=== PATIENT | male | born 1990 | race Caucasian/White ===

== ENCOUNTER → 2017-08-22 | Outpatient (CLI) | payer OTHER ==
[2017-08-22 11:49] LABS: ALANINE AMINOTRANSFERASE 26 U/L (21-72); ALBUMIN 4.4 g/dL (3.5-5.0); ALKALINE PHOSPHATASE 82 U/L (38-126); ANION GAP 12 (5-19); ASPARTATE AMINO TRANSFERASE 22 U/L (17-59); BILIRUBIN,DIRECT 0.4 mg/dL (0.0-0.4); BILIRUBIN,TOTAL 0.9 mg/dL (0.2-1.3); BLOOD UREA NITROGEN 13 mg/dL (7-20); CALCIUM 9.4 mg/dL (8.4-10.2); CARBON DIOXIDE 31 mmol/L (22-30); CHLORIDE 98 mmol/L (98-107); CHOLESTEROL 153.15 mg/dL (0-200); CREATININE RESULT 0.81 mg/dL (0.52-1.25); Direct HDL 53 mg/dL (>40); GLUCOSE 222 mg/dL (75-110); POTASSIUM 4.8 mmol/L (3.6-5.0); SODIUM 140.6 mmol/L (137-145); TOTAL PROTEIN 7.4 g/dL (6.3-8.2); TRIGLYCERIDES 90 mg/dL (<150)
[2017-08-22 12:01] LABS: DIRECT LDL 82 mg/dL (<100)
== END ==
LOC: CCC 10:09
DX: E11.40 Type 2 diabetes mellitus with diabetic neuropathy, unspecified (principal)
CPT/HCPCS: 36415; 80053; 80061; 83036

== ENCOUNTER → 2019-01-31 | Outpatient (CLI) | payer OTHER ==
[2019-01-31 10:29] LABS: ABSOLUTE EOSINOPHILS # (AUTO) 0.1 10^3/uL (0.0-0.6); ABSOLUTE MONOCYTES (AUTO) 0.7 10^3/uL (0.1-1.4); ABSOLUTE NEUT (AUTO) 9.4 10^3/uL (1.7-8.2); BASOPHILS % (AUTO) 0.3 % (0-2); EOSINOPHILS % (AUTO) 0.8 % (0-6); HEMOGLOBIN 16.5 g/dL (13.5-17.0); LYMPHOCYTES % (AUTO) 9.1 % (13-45); MEAN CORPUSCULAR HEMOGLOBIN 31.1 pg (27.0-33.4); MEAN CORPUSCULAR HGB CONC 34.3 g/dL (32.0-36.0); MEAN CORPUSCULAR VOLUME 90 fl (80-97); MONOCYTES % (AUTO) 6.2 % (3-13); PLATELET COUNT 230 10^3/uL (150-450); RED BLOOD COUNT 5.31 10^6/uL (4.35-5.55); RED CELL DISTRIBUTION WIDTH 12.2 % (11.5-14.0); SEGMENTED NEUTROPHILS % (AUTO) 83.6 % (42-78); TOTAL CELLS COUNTED % (AUTO) 100 %; WHITE BLOOD COUNT 11.2 10^3/uL (4.0-10.5)
[2019-01-31 10:54] LABS: BLOOD UREA NITROGEN 16 mg/dL (7-20); CALCIUM 10.5 mg/dL (8.4-10.2); GLUCOSE 126 mg/dL (75-110)
[2019-01-31 10:55] LABS: ALANINE AMINOTRANSFERASE 20 U/L (21-72); ALBUMIN 4.9 g/dL (3.5-5.0); ALKALINE PHOSPHATASE 98 U/L (38-126); ANION GAP 11 (5-19); ASPARTATE AMINO TRANSFERASE 21 U/L (17-59); BILIRUBIN,DIRECT 0.3 mg/dL (0.0-0.4); BILIRUBIN,TOTAL 0.9 mg/dL (0.2-1.3); CARBON DIOXIDE 29 mmol/L (22-30); CHLORIDE 98 mmol/L (98-107); CHOLESTEROL 220.36 mg/dL (0-200); POTASSIUM 4.5 mmol/L (3.6-5.0); SODIUM 138.1 mmol/L (137-145); TOTAL PROTEIN 8.5 g/dL (6.3-8.2); TRIGLYCERIDES 238 mg/dL (<150)
[2019-01-31 11:05] LABS: DIRECT LDL 114 mg/dL (<100)
[2019-01-31 11:09] LABS: VLDL CHOLESTEROL 47.6 mg/dL (10-31)
== END ==
LOC: OD 09:41
DX: I10 Essential (primary) hypertension (principal); E11.8 Type 2 diabetes mellitus with unspecified complications
CPT/HCPCS: 36415; 80053; 80061; 83036; 85025

== ENCOUNTER 2019-07-16 13:18 | Inpatient (IN) | payer SELFPAY ==
--- NOTE | 2019-07-16 13:38 | EKG REPORT ---
SEVERITY:- ABNORMAL ECG - SINUS TACHYCARDIA BIATRIAL ABNORMALITIES ST ELEVATION SUGGESTS PERICARDITIS BORDERLINE PROLONGED QT INTERVAL : Confirmed by: Chad Brink MD 16-Jul-2019 13:38:20
[2019-07-16] MEDS: NORMAL SALINE 1000 ML 1,000 ML IV PRN ×2 (13:41→14:59)
--- NOTE | 2019-07-16 13:41 | ER Document Report ---
ED General - General Chief Complaint: Nausea/Vomiting/Diarrhea Stated Complaint: WEAKNESS Time Seen by Provider: 07/16/19 13:28 TRAVEL OUTSIDE OF THE [place] IN LAST 30 DAYS: No - HPI Notes: Presents with 3 days of intermittent nausea vomiting diarrhea. Patient is a type I diabetic states that he has been out of his Lantus for approximately 1 week but has been taking his Humalog as prescribed. He states that he has been wrenching a lot and had some black vomitus as well as black stool. No recent camping around the country. Denies any chest or abdominal pain at this time. States he feels very dehydrated. He has not had a sick contacts or recent illnesses other than his nausea vomiting and diarrhea - Related Data Allergies/Adverse Reactions: yellow Jacket Allergy (Uncoded 07/16/19 13:39) Past Medical History - Social History Smoking Status: Unknown if Ever Smoked Family History: Reviewed & Not Pertinent Review of Systems - Review of Systems Constitutional: See HPI EENT: No symptoms reported Cardiovascular: No symptoms reported Respiratory: No symptoms reported Gastrointestinal: See HPI Genitourinary: No symptoms reported Male Genitourinary: No symptoms reported Musculoskeletal: No symptoms reported Skin: No symptoms reported Hematologic/Lymphatic: No symptoms reported Neurological/Psychological: No symptoms reported Physical Exam - Vital signs Vitals: Resp Pulse Ox 20 98 07/16/19 13:37 07/16/19 13:37 - General General appearance: Appears well, Alert - HEENT Head: Normocephalic, Atraumatic Eyes: Normal Conjunctiva: Normal Cornea: Normal Extraocular movements intact: Yes Pupils: PERRL Mucous membranes: Dry - Respiratory Respiratory status: No respiratory distress Chest status: Nontender Breath sounds: Normal Chest palpation: Normal - Cardiovascular Rhythm: Tachycardia Heart sounds: Normal auscultation Murmur: No - Abdominal Inspection: Normal Distension: No distension Bowel sounds: Normal Tenderness: Nontender - Genitourinary Inspection: Normal Notes: Greenish-yellow stool with no black and Hemoccult negative - Back Back: Normal - Extremities General upper extremity: Normal inspection, Normal ROM General lower extremity: Normal inspection, Normal ROM - Neurological Neuro grossly intact: Yes Cognition: Normal Orientation: AAOx4 - Psychological Associated symptoms: Normal affect Course - Re-evaluation Re-evalutation: 07/16/19 15:19 Patient found to be in DKA. Insulin and IV fluids started. Will be admitted - Vital Signs Vital signs: Temp Pulse Resp BP Pulse Ox 98.5 F 56 L 18 142/90 H 100 07/20/19 09:22 07/20/19 09:22 07/20/19 09:22 07/20/19 09:22 07/20/19 09:22 - Laboratory Result Diagrams: 07/19/19 03:54 07/20/19 04:22 Laboratory results interpreted by me: 07/16/19 07/16/19 07/16/19 13:25 13:31 13:31 WBC 22.4 H RBC 5.79 H Hgb 17.7 H Hct 55.3 H Seg Neuts % (Manual) 92 H Lymphocytes % (Manual) 3 L Abs Neuts (Manual) 20.6 H Carbonic Acid ABG pH ABG pCO2 ABG pO2 ABG HCO3 ABG Total CO2 Potassium 5.8 H Chloride 94 L Carbon Dioxide 9 L* Anion Gap 37 H BUN 43 H Creatinine 2.22 H Est GFR ( Amer) 42 L Est GFR (MDRD) Non-Af 35 L Glucose 827 H* POC Glucose > 550 H* Magnesium 2.8 H Alkaline Phosphatase 134 H Total Protein 9.1 H Albumin 5.7 H Urine Glucose (UA) Urine Ketones 07/16/19 07/16/19 07/16/19 13:50 14:43 15:12 WBC RBC Hgb Hct Seg Neuts % (Manual) Lymphocytes % (Manual) Abs Neuts (Manual) Carbonic Acid 0.67 L ABG pH 7.29 L ABG pCO2 22.2 L ABG pO2 110.2 H ABG HCO3 10.4 L ABG Total CO2 11.1 L Potassium Chloride Carbon Dioxide Anion Gap BUN Creatinine Est GFR ( Amer) Est GFR (MDRD) Non-Af Glucose POC Glucose > 550 H* Magnesium Alkaline Phosphatase Total Protein Albumin Urine Glucose (UA) >=1000 H Urine Ketones 300 H Discharge - Discharge Clinical Impression: DKA (diabetic ketoacidoses) Qualifiers: Diabetes mellitus type: type 1 Diabetes mellitus complication detail: with coma Qualified Code(s): E10.11 - Type 1 diabetes mellitus with ketoacidosis with coma Condition: Good Disposition: ADMITTED INPATIENT Admitting Provider: Stephanie (Hospitalist) Unit Admitted: ICU
[2019-07-16 13:49] LABS: HEMOGLOBIN 17.7 g/dL (13.5-17.0); MEAN CORPUSCULAR HEMOGLOBIN 30.6 pg (27.0-33.4); MEAN CORPUSCULAR HGB CONC 32.1 g/dL (32.0-36.0); MEAN CORPUSCULAR VOLUME 95 fl (80-97); PLATELET COUNT 322 10^3/uL (150-450); RED BLOOD COUNT 5.79 10^6/uL (4.35-5.55); RED CELL DISTRIBUTION WIDTH 12.8 % (11.5-14.0); WHITE BLOOD COUNT 22.4 10^3/uL (4.0-10.5)
[2019-07-16 13:52] LABS: HEMATOCRIT 55.3 % (37.9-51.0)
[2019-07-16 13:56] LABS: ARTERIAL BLOOD BASE EXCESS -13.5 mmol/L; ARTERIAL BLOOD H2CO3 0.67 mmol/L (1.05-1.35); ARTERIAL BLOOD HCO3 10.4 mmol/L (20-24); ARTERIAL BLOOD O2 SATURATION 97.6 % (94-98); ARTERIAL BLOOD PCO2 22.2 mmHg (35-45); ARTERIAL BLOOD PH 7.29 (7.35-7.45); ARTERIAL BLOOD PO2 110.2 mmHg (80-100); ARTERIAL BLOOD TOTAL CO2 11.1 mmol/L (23-27)
[2019-07-16 13:57] LABS: ARTERIAL BLOOD FIO2 ROOM AIR
[2019-07-16 14:10] LABS: ALBUMIN 5.7 g/dL (3.5-5.0); ALKALINE PHOSPHATASE 134 U/L (38-126); ASPARTATE AMINO TRANSFERASE 18 U/L (17-59); BILIRUBIN,DIRECT 0.3 mg/dL (0.0-0.4); BILIRUBIN,TOTAL 0.7 mg/dL (0.2-1.3); BLOOD UREA NITROGEN 43 mg/dL (7-20); CALCIUM 10.1 mg/dL (8.4-10.2); CHLORIDE 94 mmol/L (98-107); POTASSIUM 5.8 mmol/L (3.6-5.0); TOTAL PROTEIN 9.1 g/dL (6.3-8.2)
[2019-07-16 14:18] LABS: ANION GAP 37 (5-19)
[2019-07-16 14:20] LABS: CARBON DIOXIDE 9 mmol/L (22-30)
[2019-07-16 14:21] LABS: GLUCOSE 827 mg/dL (75-110)
[2019-07-16 14:28] LABS: ABSOLUTE LYMPHOCYTES# (MANUAL) 0.7 10^3/uL (0.5-4.7); ABSOLUTE MONOCYTES # (MANUAL) 1.1 10^3/uL (0.1-1.4); BASOPHILS % (MANUAL) 0 % (0-2); EOSINOPHILS % (MANUAL) 0 % (0-6); LYMPHOCYTES % (MANUAL) 3 % (13-45); MONOCYTES % (MANUAL) 5 % (3-13); SEGMENTED NEUTROPHILS % (MAN) 92 % (42-78); TOTAL CELLS COUNTED 100
[2019-07-16 14:29] LABS: PLATELET COMMENT ADEQUATE; RBC MORPHOLOGY COMMENT NORMO-CYTIC/CHROMIC
--- NOTE | 2019-07-16 15:15 | RADIOLOGY REPORT (SQ) ---
EXAM DESCRIPTION: CHEST SINGLE VIEW COMPLETED DATE/TIME: 07/16/2019 2:57 pm REASON FOR STUDY: N/V/D COMPARISON: None. EXAM PARAMETERS: NUMBER OF VIEWS: One view. TECHNIQUE: Single frontal radiographic view of the chest acquired. RADIATION DOSE: NA LIMITATIONS: None. FINDINGS: LUNGS AND PLEURA: No opacities, masses or pneumothorax. No pleural effusion. MEDIASTINUM AND HILAR STRUCTURES: No masses. Contour normal. HEART AND VASCULAR STRUCTURES: Heart normal in size. Normal vasculature. BONES: No acute findings. HARDWARE: None in the chest. OTHER: No other significant finding. IMPRESSION: NO ACUTE RADIOGRAPHIC FINDING IN THE CHEST. TECHNICAL DOCUMENTATION: JOB ID: [id number] [employer]- All Rights Reserved Reading location - IP/workstation name: [email or web address]
[2019-07-16] MEDS: INSULIN REG, HUMAN 100 UNIT/ML 3 ML VIAL (PYX) IV ONE ×2 (15:19→16:34)
[2019-07-16 15:24] LABS: APPEARANCE,URINE CLEAR; BILIRUBIN,URINE NEGATIVE (NEGATIVE); COLOR,URINE YELLOW; GLUCOSE, URINE >=1000 mg/dL (NEGATIVE); KETONES,URINE 300 mg/dL (NEGATIVE); LEUKOCYTE ESTERASE,URINE NEGATIVE (NEGATIVE); NITRITE,URINE NEGATIVE (NEGATIVE); PROTEIN,URINE NEGATIVE (NEGATIVE); URINE SPECIFIC GRAVITY 1.026; UROBILINOGEN,URINE NEGATIVE mg/dL (<2.0)
[2019-07-16] MEDS ORDERED: NORMAL SALINE 1000 ML 1,000 ML IV PRN ×2 (15:24→15:55)
[2019-07-16] MEDS ORDERED: GLUCAGON,HUMAN RECOMB 1 MG INJ IM PRN (15:55)
[2019-07-16] MEDS ORDERED: DEXTROSE 50%-WATER 25 GM/50 ML DISP.SYRIN IV PRN ×4 (15:55)
[2019-07-16] MEDS ORDERED: NORMAL SALINE 100 ML with INSULIN REGULAR, HUMAN 100 UNIT IV PRN ×2 (15:55)
[2019-07-16] MEDS ORDERED: GLUCAGON,HUMAN RECOMB 1 MG INJ SUBCUT PRN (15:55)
[2019-07-16] MEDS ORDERED: DEXTROSE 40% GEL 15 GM TUBE PO PRN ×4 (15:55)
[2019-07-16] MEDS: ONDANSETRON HCL INJ/PF 4 MG/2 ML SDV IV PRN ×2 (15:56→22:50)
--- NOTE | 2019-07-16 16:20 | PDOC H&P ---
History of Present Illness Admission Date/PCP: 07/16/19 15:38 MAGALY JEAN MD History of Present Illness: JORDYN DAVIS is a 29 year old male with a history of type 1 diabetes marta ha diagnosed at age 13 who comes in in diabetic ketoacidosis. He said he does not always check his blood sugar because it gets to be a hassle. He says a lot of the times he doses his insulin based on how he feels and not on his blood sugar. He supposed to be doing Lantus and a sliding scale. He been feeling poorly for a couple of days and has had some nausea and vomiting. He came in today and had a constellation of symptoms consistent with DKA. He is being admitted for an insulin drip and some IV fluids and electrolyte management. Past Medical History Endocrine Medical History: Reports: Diabetes Mellitus Type 1 Social History Smoking Status: Former Smoker Family History Parental Family History Reviewed: Yes - Hypertension Children Family History Reviewed: Yes - No medical problems Sibling(s) Family History Reviewed.: Yes - Nothing known Medication/Allergy Allergies/Adverse Reactions: yellow Jacket Allergy (Uncoded 07/16/19 13:39) Review of Systems All systems: reviewed and no additional remarkable complaints except as stated - All systems were reviewed and were negative except as noted in the HPI Physical Exam Vital Signs: Temp Pulse Resp BP Pulse Ox 26 H 143/101 H 99 07/16/19 14:16 07/16/19 14:16 07/16/19 14:16 Intake & Output 07/15/19 07/16/19 07/17/19 06:59 06:59 06:59 Intake Total 1000 Balance 1000 Weight 86.4 kg General appearance: PRESENT: cooperative, disheveled, mild distress, thin Head exam: PRESENT: atraumatic, normocephalic Eye exam: PRESENT: conjunctival injection, EOMI, PERRLA. ABSENT: nystagmus, scleral icterus Ear exam: PRESENT: normal external ear exam Mouth exam: PRESENT: dry mucosa, neck supple Throat exam: ABSENT: post pharyngeal erythema Neck exam: PRESENT: full ROM. ABSENT: carotid bruit, JVD, lymphadenopathy, meningismus, tenderness, thyromegaly Respiratory exam: PRESENT: clear to auscultation ramon, symmetrical, tachypnea, unlabored. ABSENT: accessory muscle use, chest wall tenderness, crackles, prolonged expiratory phas, rhonchi, wheezes Cardiovascular exam: PRESENT: +S1, +S2, tachycardia Pulses: PRESENT: normal carotid pulses Vascular exam: PRESENT: normal capillary refill GI/Abdominal exam: PRESENT: normal bowel sounds, soft. ABSENT: distended, guard ing, rebound, tenderness Extremities exam: ABSENT: clubbing, pedal edema Musculoskeletal exam: PRESENT: normal inspection. ABSENT: deformity Neurological exam: PRESENT: alert, awake, oriented to person, oriented to place, oriented to time, oriented to situation, CN II-XII grossly intact. ABSENT: motor sensory deficit Psychiatric exam: PRESENT: flat affect, normal mood Skin exam: PRESENT: dry, warm Results Laboratory Results: 07/16/19 13:31 07/16/19 13:31 07/16/19 07/16/19 07/16/19 13:31 13:31 13:50 WBC 22.4 H RBC 5.79 H Hgb 17.7 H Hct 55.3 H MCV 95 MCH 30.6 MCHC 32.1 RDW 12.8 Plt Count 322 Seg Neutrophils % Not Reportable Carbonic Acid 0.67 L HCO3/H2CO3 Ratio 15:1 ABG pH 7.29 L ABG pCO2 22.2 L ABG pO2 110.2 H ABG HCO3 10.4 L ABG O2 Saturation 97.6 ABG Base Excess -13.5 FiO2 ROOM AIR Sodium 140.3 Potassium 5.8 H Chloride 94 L Carbon Dioxide 9 L* Anion Gap 37 H BUN 43 H Creatinine 2.22 H Est GFR ( Amer) 42 L Glucose 827 H* Calcium 10.1 Magnesium 2.8 H Total Bilirubin 0.7 AST 18 Alkaline Phosphatase 134 H Total Protein 9.1 H Albumin 5.7 H Lipase 167.1 Urine Color Urine Appearance Urine pH Ur Specific [place] Urine Protein Urine Glucose (UA) Urine Ketones Urine Blood Urine Nitrite Ur Leukocyte Esterase Urine WBC (Auto) Urine RBC (Auto) Blood Type Antibody Screen 07/16/19 07/16/19 14:19 14:43 WBC RBC Hgb Hct MCV MCH MCHC RDW Plt Count Seg Neutrophils % Carbonic Acid HCO3/H2CO3 Ratio ABG pH ABG pCO2 ABG pO2 ABG HCO3 ABG O2 Saturation ABG Base Excess FiO2 Sodium Potassium Chloride Carbon Dioxide Anion Gap BUN Creatinine Est GFR ( Amer) Glucose Calcium Magnesium Total Bilirubin AST Alkaline Phosphatase Total Protein Albumin Lipase Urine Color YELLOW Urine Appearance CLEAR Urine pH 5.0 Ur Specific [place] 1.026 Urine Protein NEGATIVE Urine Glucose (UA) >=1000 H Urine Ketones 300 H Urine Blood NEGATIVE Urine Nitrite NEGATIVE Ur Leukocyte Esterase NEGATIVE Urine WBC (Auto) 1 Urine RBC (Auto) 0 Blood Type B POSITIVE Antibody Screen NEGATIVE Impressions: Chest X-Ray 07/16/19 13:37 IMPRESSION: NO ACUTE RADIOGRAPHIC FINDING IN THE CHEST. Assessment and Plan - Diagnosis (1) DKA (diabetic ketoacidoses) Qualifiers: Diabetes mellitus type: type 1 Diabetes mellitus complication detail: with coma Qualified Code(s): E10.11 - Type 1 diabetes mellitus with ketoacidosis with coma Is this a current diagnosis for this admission?: Yes Plan: We are going to put him on insulin drip and given copious IV fluids. We will check a metabolic panel every 4 hours and will replace electrolytes as needed. We will check a hemoglobin A1c in the morning to see how well controlled his blood sugar is to see if he needs further adjustment of his regimen. N.p.o. for now. - Time Time Spent with patient: 35 or more minutes - Inpatient Certification Based on my medical assessment, after consideration of the patient's comorbidities, presenting symptoms, or acuity I expect that the services needed warrant INPATIENT care.: Yes I certify that my determination is in accordance with my understanding of [facility]'s requirements for reasonable and necessary INPATIENT services [42 CFR 412.3e].: Yes Medical Necessity: Need Close Monitoring Due to Risk of Patient Decompensation, Need For IV Fluids, Need For Continuous Telemetry Monitoring, Risk of Complication if Not Cared For in Hospital
[2019-07-16 19:46] LABS: BLOOD UREA NITROGEN 41 mg/dL (7-20); CALCIUM 10.5 mg/dL (8.4-10.2); CHLORIDE 111 mmol/L (98-107); GLUCOSE 277 mg/dL (75-110)
[2019-07-16 19:56] LABS: CARBON DIOXIDE 21 mmol/L (22-30)
[2019-07-16 19:57] LABS: ANION GAP 18 (5-19)
[2019-07-16] MEDS ORDERED: POTASSI CL 20 MEQ/D5-1/2NS 1L 1,000 ML IV ONE (20:45)
[2019-07-16] MEDS: HEPARIN SOD (PORCINE) 5,000 UNIT/ML 1 ML VIAL SUBCUT SCH (21:22)
[2019-07-16 23:46] LABS: ANION GAP 18 (5-19); BLOOD UREA NITROGEN 34 mg/dL (7-20); CALCIUM 9.3 mg/dL (8.4-10.2); CARBON DIOXIDE 17 mmol/L (22-30); CHLORIDE 113 mmol/L (98-107); GLUCOSE 324 mg/dL (75-110); POTASSIUM 4.1 mmol/L (3.6-5.0)
[2019-07-17 03:59] LABS: ANION GAP 11 (5-19); BLOOD UREA NITROGEN 31 mg/dL (7-20); CALCIUM 9.9 mg/dL (8.4-10.2); CARBON DIOXIDE 25 mmol/L (22-30); CHLORIDE 116 mmol/L (98-107); GLUCOSE 245 mg/dL (75-110); PHOSPHORUS 1.5 mg/dL (2.5-4.5); POTASSIUM 4.2 mmol/L (3.6-5.0)
[2019-07-17 04:05] LABS: HEMATOCRIT 48.2 % (37.9-51.0); HEMOGLOBIN 16.4 g/dL (13.5-17.0); MEAN CORPUSCULAR HEMOGLOBIN 30.6 pg (27.0-33.4); MEAN CORPUSCULAR HGB CONC 33.9 g/dL (32.0-36.0); PLATELET COUNT 273 10^3/uL (150-450); RED BLOOD COUNT 5.34 10^6/uL (4.35-5.55); RED CELL DISTRIBUTION WIDTH 12.3 % (11.5-14.0); WHITE BLOOD COUNT 22.3 10^3/uL (4.0-10.5)
[2019-07-17 04:37] LABS: MEAN CORPUSCULAR VOLUME 90 fl (80-97)
[2019-07-17] MEDS: ONDANSETRON HCL INJ/PF 4 MG/2 ML SDV IV PRN ×3 (04:40→19:45)
[2019-07-17] MEDS: HEPARIN SOD (PORCINE) 5,000 UNIT/ML 1 ML VIAL SUBCUT SCH ×3 (05:31→22:00)
[2019-07-17] MEDS: POTASSI CL 20 MEQ/D5-1/2NS 1L 1000 ML IV PRN ×3 (05:33→19:50)
[2019-07-17 08:38] LABS: ANION GAP 12 (5-19); BLOOD UREA NITROGEN 27 mg/dL (7-20); CALCIUM 10.2 mg/dL (8.4-10.2); CARBON DIOXIDE 24 mmol/L (22-30); CHLORIDE 117 mmol/L (98-107); GLUCOSE 118 mg/dL (75-110); POTASSIUM 3.8 mmol/L (3.6-5.0)
[2019-07-17] MEDS: PHOSPHORUS #1 250 MG TABLET PO SCH ×3 (09:29→16:18)
[2019-07-17] MEDS ORDERED: INSULIN LISPRO 100 UNIT/ML 3 ML VIAL ONE ×2 (10:40→12:12)
[2019-07-17] MEDS ORDERED: DEXTROSE 50%-WATER SYRINGE 25 GM/50 ML DOSE IV PRN (11:30)
[2019-07-17] MEDS ORDERED: DEXTROSE 50%-WATER SYRINGE 12.5 GM/25 ML DOSE IV PRN (11:30)
[2019-07-17] MEDS ORDERED: GLUCAGON,HUMAN RECOMB 1 MG INJ IM PRN (11:30)
[2019-07-17] MEDS ORDERED: DEXTROSE 40% GEL 15 GM TUBE PO PRN (11:30)
[2019-07-17] MEDS ORDERED: DEXTROSE 40% GEL 15 GM TUBE X 2 PO PRN (11:30)
--- NOTE | 2019-07-17 11:32 | Progress Note Acknowledgement ---
Progress Note Acknowledgement Progess Note Acknowledgement: I, the undersigned member of the medical staff with appropriate privileges and with supervisory authority over [ PAC ], a dependent practice allied health professional, acknowledge that I have reviewed the progress notes entered on this patient, and in my professional judgment believe that the assessment made and/or any care evidenced was appropriate
--- NOTE | 2019-07-17 11:44 | PDOC PROGRESS REPORT ---
Subjective Progress Note for:: 07/17/19 Subjective:: 29-year-old male added yesterday for DKA. Patient has been out of his Lantus for about a month. Patient also admits to drinking beer frequently patient was admitted to the hospital with cytosis 22,400, glucose level of 827. Hemoglobin A1c 10.7 Reason For Visit: DKA (DIABETIC KETOACIDOSIS) Physical Exam Vital Signs: Temp Pulse Resp BP Pulse Ox 97.6 F 61 16 154/93 H 100 07/17/19 07:39 07/17/19 07:39 07/17/19 07:39 07/17/19 07:39 07/17/19 07:39 Intake & Output 07/16/19 07/17/19 07/18/19 06:59 06:59 06:59 Intake Total 3080 811 Output Total 875 Balance 2205 811 Weight 76.4 kg General appearance: PRESENT: mild distress, other - Complaining of abdominal pain spitting up or vomiting black substance. This was reportedly tested for Hemoccult in the emergency room and was negative however it will be retested. Respiratory exam: PRESENT: clear to auscultation ramon. ABSENT: rales, rhonchi, wheezes Cardiovascular exam: PRESENT: RRR. ABSENT: diastolic murmur, rubs, systolic murmur GI/Abdominal exam: PRESENT: normal bowel sounds, soft. ABSENT: distended, guarding, mass, organolmegaly, rebound, tenderness Neurological exam: PRESENT: alert, awake, oriented to person, oriented to place, oriented to time, oriented to situation, CN II-XII grossly intact. ABSENT: motor sensory deficit Psychiatric exam: PRESENT: anxious, other - Patient's sister is in the room during the exam Results Laboratory Results: 07/17/19 03:30 07/17/19 08:01 07/16/19 07/16/19 07/16/19 13:31 13:31 13:50 WBC 22.4 H RBC 5.79 H Hgb 17.7 H Hct 55.3 H MCV 95 MCH 30.6 MCHC 32.1 RDW 12.8 Plt Count 322 Seg Neutrophils % Not Reportable Carbonic Acid 0.67 L HCO3/H2CO3 Ratio 15:1 ABG pH 7.29 L ABG pCO2 22.2 L ABG pO2 110.2 H ABG HCO3 10.4 L ABG O2 Saturation 97.6 ABG Base Excess -13.5 FiO2 ROOM AIR Sodium 140.3 Potassium 5.8 H Chloride 94 L Carbon Dioxide 9 L* Anion Gap 37 H BUN 43 H Creatinine 2.22 H Est GFR ( Amer) 42 L Glucose 827 H* Calcium 10.1 Phosphorus Magnesium 2.8 H Total Bilirubin 0.7 AST 18 Alkaline Phosphatase 134 H Total Protein 9.1 H Albumin 5.7 H Lipase 167.1 Urine Color Urine Appearance Urine pH Ur Specific [place] Urine Protein Urine Glucose (UA) Urine Ketones Urine Blood Urine Nitrite Ur Leukocyte Esterase Urine WBC (Auto) Urine RBC (Auto) Blood Type Antibody Screen 07/16/19 07/16/19 07/16/19 14:19 14:43 19:25 WBC RBC Hgb Hct MCV MCH MCHC RDW Plt Count Seg Neutrophils % Carbonic Acid HCO3/H2CO3 Ratio ABG pH ABG pCO2 ABG pO2 ABG HCO3 ABG O2 Saturation ABG Base Excess FiO2 Sodium 150.3 H Potassium 4.0 D Chloride 111 H Carbon Dioxide 21 L D Anion Gap 18 BUN 41 H Creatinine 1.44 H Est GFR ( Amer) > 60 Glucose 277 H Calcium 10.5 H Phosphorus Magnesium Total Bilirubin AST Alkaline Phosphatase Total Protein Albumin Lipase Urine Color YELLOW Urine Appearance CLEAR Urine pH 5.0 Ur Specific [place] 1.026 Urine Protein NEGATIVE Urine Glucose (UA) >=1000 H Urine Ketones 300 H Urine Blood NEGATIVE Urine Nitrite NEGATIVE Ur Leukocyte Esterase NEGATIVE Urine WBC (Auto) 1 Urine RBC (Auto) 0 Blood Type B POSITIVE Antibody Screen NEGATIVE 07/16/19 07/17/19 07/17/19 23:23 03:30 03:30 WBC 22.3 H RBC 5.34 Hgb 16.4 Hct 48.2 MCV 90 D MCH 30.6 MCHC 33.9 RDW 12.3 Plt Count 273 Seg Neutrophils % Carbonic Acid HCO3/H2CO3 Ratio ABG pH ABG pCO2 ABG pO2 ABG HCO3 ABG O2 Saturation ABG Base Excess FiO2 Sodium 148.0 H 151.6 H Potassium 4.1 4.2 Chloride 113 H 116 H Carbon Dioxide 17 L 25 Anion Gap 18 11 BUN 34 H 31 H Creatinine 1.21 1.21 Est GFR ( Amer) > 60 > 60 Glucose 324 H 245 H Calcium 9.3 9.9 Phosphorus 1.5 L Magnesium 2.6 H Total Bilirubin AST Alkaline Phosphatase Total Protein Albumin Lipase Urine Color Urine Appearance Urine pH Ur Specific [place] Urine Protein Urine Glucose (UA) Urine Ketones Urine Blood Urine Nitrite Ur Leukocyte Esterase Urine WBC (Auto) Urine RBC (Auto) Blood Type Antibody Screen 07/17/19 08:01 WBC RBC Hgb Hct MCV MCH MCHC RDW Plt Count Seg Neutrophils % Carbonic Acid HCO3/H2CO3 Ratio ABG pH ABG pCO2 ABG pO2 ABG HCO3 ABG O2 Saturation ABG Base Excess FiO2 Sodium 153.1 H Potassium 3.8 Chloride 117 H Carbon Dioxide 24 Anion Gap 12 BUN 27 H Creatinine 1.08 Est GFR ( Amer) > 60 Glucose 118 H Calcium 10.2 Phosphorus Magnesium Total Bilirubin AST Alkaline Phosphatase Total Protein Albumin Lipase Urine Color Urine Appearance Urine pH Ur Specific [place] Urine Protein Urine Glucose (UA) Urine Ketones Urine Blood Urine Nitrite Ur Leukocyte Esterase Urine WBC (Auto) Urine RBC (Auto) Blood Type Antibody Screen Impressions: Chest X-Ray 07/16/19 13:37 IMPRESSION: NO ACUTE RADIOGRAPHIC FINDING IN THE CHEST. Assessment and Plan - Diagnosis (1) H/O ETOH abuse Is this a current diagnosis for this admission?: Yes Plan: States he drinks about a sixpack of beer every other night, although his mother was on the phone and it may be that he does drink more alcohol than what he admits to (2) Patient noncompliance Is this a current diagnosis for this admission?: Yes Plan: Patient was not taking his Lantus and checking his blood sugars because he said it was too much trouble (3) Patient's noncompliance with other medical treatment and regimen Is this a current diagnosis for this admission?: Yes Plan: Patient not taking his Lantus for about a month now (4) DKA (diabetic ketoacidoses) Qualifiers: Diabetes mellitus type: type 1 Diabetes mellitus complication detail: with coma Qualified Code(s): E10.11 - Type 1 diabetes mellitus with ketoacidosis with coma Is this a current diagnosis for this admission?: Yes Plan: We are going to put him on insulin drip and given copious IV fluids. We will check a metabolic panel every 4 hours and will replace electrolytes as needed. We will check a hemoglobin A1c in the morning to see how well controlled his blood sugar is to see if he needs further adjustment of his regimen. N.p.o. for now. Patient's glucose levels have come down nicely into the low 100s. He is no longer on insulin drip and will be covered with a sliding scale and will continue with IV fluids D5 half-normal saline at 100/h (5) Erosive esophagitis Is this a current diagnosis for this admission?: Yes Plan: Since positive blood of his gastric contents this morning will add Protonix and Carafate to his regimen - Time Time Spent with patient: 35 or more minutes
[2019-07-17] MEDS: PANTOPRAZOLE SODIUM 40 MG VIAL IV SCH ×2 (12:08→22:00)
[2019-07-17 13:01] LABS: BLOOD UREA NITROGEN 26 mg/dL (7-20); CHLORIDE 113 mmol/L (98-107); GLUCOSE 350 mg/dL (75-110); POTASSIUM 4.1 mmol/L (3.6-5.0)
[2019-07-17 13:06] LABS: ANION GAP 18 (5-19); CARBON DIOXIDE 19 mmol/L (22-30)
[2019-07-17 15:59] LABS: ANION GAP 12 (5-19); BLOOD UREA NITROGEN 23 mg/dL (7-20); CALCIUM 9.8 mg/dL (8.4-10.2); CARBON DIOXIDE 23 mmol/L (22-30); CHLORIDE 113 mmol/L (98-107); GLUCOSE 269 mg/dL (75-110); POTASSIUM 3.9 mmol/L (3.6-5.0)
[2019-07-17] MEDS: SUCRALFATE 1 GM TABLET PO SCH ×2 (16:18→22:00)
[2019-07-17] MEDS: INSULIN LISPRO 100 UNIT/ML 3 ML VIAL SUBCUT SCH ×2 (16:18→21:58)
[2019-07-17 20:19] LABS: ANION GAP 13 (5-19); BLOOD UREA NITROGEN 21 mg/dL (7-20); CALCIUM 9.9 mg/dL (8.4-10.2); CARBON DIOXIDE 23 mmol/L (22-30); CHLORIDE 111 mmol/L (98-107); GLUCOSE 313 mg/dL (75-110); POTASSIUM 4.6 mmol/L (3.6-5.0)
[2019-07-17] MEDS: INSULIN GLARGINE,HUM.REC.ANLOG 1,000 UNIT/10 ML VIAL SUBCUT SCH (22:00)
[2019-07-17 23:53] LABS: ANION GAP 17 (5-19); BLOOD UREA NITROGEN 21 mg/dL (7-20); CALCIUM 9.7 mg/dL (8.4-10.2); CARBON DIOXIDE 19 mmol/L (22-30); CHLORIDE 110 mmol/L (98-107)
[2019-07-18 00:04] LABS: GLUCOSE 436 mg/dL (75-110)
[2019-07-18 03:18] LABS: HEMATOCRIT 44.6 % (37.9-51.0); HEMOGLOBIN 14.8 g/dL (13.5-17.0); MEAN CORPUSCULAR HEMOGLOBIN 30.3 pg (27.0-33.4); MEAN CORPUSCULAR HGB CONC 33.3 g/dL (32.0-36.0); MEAN CORPUSCULAR VOLUME 91 fl (80-97); PLATELET COUNT 213 10^3/uL (150-450); RED CELL DISTRIBUTION WIDTH 12.4 % (11.5-14.0)
[2019-07-18 03:39] LABS: ANION GAP 13 (5-19); BLOOD UREA NITROGEN 20 mg/dL (7-20); CALCIUM 9.9 mg/dL (8.4-10.2); CARBON DIOXIDE 22 mmol/L (22-30); CHLORIDE 110 mmol/L (98-107); GLUCOSE 347 mg/dL (75-110); PHOSPHORUS 2.7 mg/dL (2.5-4.5); POTASSIUM 4.6 mmol/L (3.6-5.0)
[2019-07-18] MEDS: HEPARIN SOD (PORCINE) 5,000 UNIT/ML 1 ML VIAL SUBCUT SCH ×3 (05:20→21:47)
[2019-07-18 08:31] LABS: ANION GAP 10 (5-19); BLOOD UREA NITROGEN 20 mg/dL (7-20); CALCIUM 9.7 mg/dL (8.4-10.2); CARBON DIOXIDE 26 mmol/L (22-30); CHLORIDE 110 mmol/L (98-107); GLUCOSE 302 mg/dL (75-110); POTASSIUM 4.7 mmol/L (3.6-5.0)
[2019-07-18] MEDS ORDERED: INSULIN GLARGINE,HUM.REC.ANLOG 1,000 UNIT/10 ML VIAL (PYX) SUBCUT ONE ×2 (08:42→09:26)
[2019-07-18] MEDS: PHOSPHORUS #1 250 MG TABLET PO SCH (08:45)
[2019-07-18] MEDS: INSULIN LISPRO 100 UNIT/ML 3 ML VIAL SUBCUT SCH ×4 (08:45→22:11)
[2019-07-18] MEDS: SUCRALFATE 1 GM TABLET PO SCH ×4 (08:45→22:11)
[2019-07-18] MEDS: ONDANSETRON HCL INJ/PF 4 MG/2 ML SDV IV PRN ×2 (08:46→22:19)
[2019-07-18] MEDS: PANTOPRAZOLE SODIUM 40 MG VIAL IV SCH ×2 (09:30→22:10)
[2019-07-18 13:15] LABS: ANION GAP 9 (5-19); BLOOD UREA NITROGEN 20 mg/dL (7-20); CALCIUM 9.5 mg/dL (8.4-10.2); CARBON DIOXIDE 29 mmol/L (22-30); CHLORIDE 106 mmol/L (98-107); GLUCOSE 258 mg/dL (75-110); POTASSIUM 4.5 mmol/L (3.6-5.0)
--- NOTE | 2019-07-18 15:21 | PDOC PROGRESS REPORT ---
Subjective Progress Note for:: 07/18/19 Subjective:: 29-year-old male added yesterday for DKA. Patient has been out of his Lantus for about a month. Patient also admits to drinking beer frequently patient was admitted to the hospital with leuko-cytosis 22,400, glucose level of 827. Hemoglobin A1c 10.7 07/18/2019 she is feeling much better, vital signs are stable temperature 98.6 pulse is about 60 blood pressure 144/91, O2 sat 100% on room air WBCs today have come down to 15,000, down from 22,000 glucose levels are down in the mid 200s from a high of 827, electrolytes are normal Patient is currently on Protonix IV Carafate Lantus 30 units nightly and a sliding scale Reason For Visit: DKA (DIABETIC KETOACIDOSIS) Physical Exam Vital Signs: Temp Pulse Resp BP Pulse Ox 98.6 F 59 L 16 144/91 H 100 07/18/19 12:34 07/18/19 14:00 07/18/19 12:34 07/18/19 12:34 07/18/19 12:34 Intake & Output 07/17/19 07/18/19 07/19/19 06:59 06:59 06:59 Intake Total 3080 3386 Output Total 875 900 Balance 2205 2486 Weight 76.4 kg 76.3 kg General appearance: PRESENT: no acute distress Respiratory exam: PRESENT: clear to auscultation ramon. ABSENT: rales, rhonchi, wheezes Cardiovascular exam: PRESENT: RRR. ABSENT: diastolic murmur, rubs, systolic murmur Neurological exam: PRESENT: alert, awake, oriented to person, oriented to place, oriented to time, oriented to situation, CN II-XII grossly intact. ABSENT: motor sensory deficit Psychiatric exam: PRESENT: appropriate affect, normal mood, other - States he is feeling better and good spirits. Anticipate discharge in the next 48 hours. ABSENT: homicidal ideation, suicidal ideation Results Laboratory Results: 07/18/19 03:09 07/17/19 07/17/19 07/17/19 15:25 19:35 23:20 WBC RBC Hgb Hct MCV MCH MCHC RDW Plt Count Sodium 147.5 H 147.3 H 145.5 H Potassium 3.9 4.6 4.0 Chloride 113 H 111 H 110 H Carbon Dioxide 23 23 19 L Anion Gap 12 13 17 BUN 23 H 21 H 21 H Creatinine 0.95 0.94 1.01 Est GFR ( Amer) > 60 > 60 > 60 Glucose 269 H 313 H 436 H* Calcium 9.8 9.9 9.7 Phosphorus Magnesium 07/18/19 07/18/19 07/18/19 03:09 03:09 07:49 WBC 15.0 H RBC 4.90 Hgb 14.8 Hct 44.6 MCV 91 MCH 30.3 MCHC 33.3 RDW 12.4 Plt Count 213 Sodium 145.2 H 145.9 H Potassium 4.6 4.7 Chloride 110 H 110 H Carbon Dioxide 22 26 Anion Gap 13 10 BUN 20 20 Creatinine 0.93 0.97 Est GFR ( Amer) > 60 > 60 Glucose 347 H 302 H Calcium 9.9 9.7 Phosphorus 2.7 Magnesium 2.3 07/18/19 11:25 WBC RBC Hgb Hct MCV MCH MCHC RDW Plt Count Sodium 143.7 Potassium 4.5 Chloride 106 Carbon Dioxide 29 Anion Gap 9 BUN 20 Creatinine 0.88 Est GFR ( Amer) > 60 Glucose 258 H Calcium 9.5 Phosphorus Magnesium Impressions: Chest X-Ray 07/16/19 13:37 IMPRESSION: NO ACUTE RADIOGRAPHIC FINDING IN THE CHEST. Assessment and Plan - Diagnosis (1) H/O ETOH abuse Is this a current diagnosis for this admission?: Yes Plan: States he drinks about a sixpack of beer every other night, although his mother was on the phone and it may be that he does drink more alcohol than what he admits to 07/18/2019 no sign of DTs (2) Patient noncompliance Is this a current diagnosis for this admission?: Yes Plan: Patient was not taking his Lantus and checking his blood sugars because he said it was too much trouble 07/18/2019 discussed the importance of patient taking his Lantus and checking his blood sugars once he is discharged (3) Patient's noncompliance with other medical treatment and regimen Is this a current diagnosis for this admission?: Yes Plan: Patient not taking his Lantus for about a month now 07/18/2019 rest the importance of diabetes medication and fingersticks (4) DKA (diabetic ketoacidoses) Qualifiers: Diabetes mellitus type: type 1 Diabetes mellitus complication detail: with coma Qualified Code(s): E10.11 - Type 1 diabetes mellitus with ketoacidosis with coma Is this a current diagnosis for this admission?: Yes Plan: We are going to put him on insulin drip and given copious IV fluids. We will check a metabolic panel every 4 hours and will replace electrolytes as needed. We will check a hemoglobin A1c in the morning to see how well controlled his blood sugar is to see if he needs further adjustment of his regimen. N.p.o. for now. Patient's glucose levels have come down nicely into the low 100s. He is no longer on insulin drip and will be covered with a sliding scale and will continue with IV fluids D5 half-normal saline at 100/h 07/18/2019 his blood sugars are responding well Lantus. Chemistry panel shows anion gap of 9, blood sugars are in the low to mid 200s now. (5) Erosive esophagitis Is this a current diagnosis for this admission?: Yes Plan: Since positive blood of his gastric contents this morning will add Protonix and Carafate to his regimen 07/18/2019 states he is feeling better he is not coughing up any dark substances has more of an appetite and asking for food. We will continue the Protonix as an outpatient when discharged - Time Time Spent with patient: 25-34 minutes
[2019-07-18 16:14] LABS: ANION GAP 10 (5-19); BLOOD UREA NITROGEN 19 mg/dL (7-20); CALCIUM 9.5 mg/dL (8.4-10.2); CARBON DIOXIDE 27 mmol/L (22-30); CHLORIDE 107 mmol/L (98-107); GLUCOSE 128 mg/dL (75-110)
[2019-07-18 20:00] LABS: ANION GAP 12 (5-19); BLOOD UREA NITROGEN 20 mg/dL (7-20); CALCIUM 9.4 mg/dL (8.4-10.2); CARBON DIOXIDE 25 mmol/L (22-30); CHLORIDE 105 mmol/L (98-107); GLUCOSE 162 mg/dL (75-110); POTASSIUM 4.5 mmol/L (3.6-5.0)
[2019-07-18] MEDS: INSULIN GLARGINE,HUM.REC.ANLOG 1,000 UNIT/10 ML VIAL SUBCUT SCH (22:10)
[2019-07-19 00:26] LABS: ANION GAP 12 (5-19); BLOOD UREA NITROGEN 21 mg/dL (7-20); CALCIUM 9.3 mg/dL (8.4-10.2); CARBON DIOXIDE 26 mmol/L (22-30); CHLORIDE 103 mmol/L (98-107); GLUCOSE 268 mg/dL (75-110); POTASSIUM 3.6 mmol/L (3.6-5.0)
[2019-07-19 04:01] LABS: HEMOGLOBIN 13.7 g/dL (13.5-17.0); MEAN CORPUSCULAR HEMOGLOBIN 30.8 pg (27.0-33.4); MEAN CORPUSCULAR HGB CONC 34.4 g/dL (32.0-36.0); MEAN CORPUSCULAR VOLUME 90 fl (80-97); PLATELET COUNT 161 10^3/uL (150-450); RED BLOOD COUNT 4.46 10^6/uL (4.35-5.55); RED CELL DISTRIBUTION WIDTH 12.3 % (11.5-14.0); WHITE BLOOD COUNT 7.3 10^3/uL (4.0-10.5)
[2019-07-19 04:23] LABS: ANION GAP 8 (5-19); BLOOD UREA NITROGEN 21 mg/dL (7-20); CALCIUM 9.3 mg/dL (8.4-10.2); CARBON DIOXIDE 29 mmol/L (22-30); CHLORIDE 104 mmol/L (98-107); GLUCOSE 205 mg/dL (75-110); PHOSPHORUS 3.6 mg/dL (2.5-4.5); POTASSIUM 3.8 mmol/L (3.6-5.0)
[2019-07-19] MEDS: HEPARIN SOD (PORCINE) 5,000 UNIT/ML 1 ML VIAL SUBCUT SCH ×3 (05:52→21:01)
[2019-07-19 08:57] LABS: ANION GAP 11 (5-19); BLOOD UREA NITROGEN 20 mg/dL (7-20); CALCIUM 9.6 mg/dL (8.4-10.2); CARBON DIOXIDE 29 mmol/L (22-30); CHLORIDE 103 mmol/L (98-107); GLUCOSE 212 mg/dL (75-110); POTASSIUM 4.5 mmol/L (3.6-5.0)
[2019-07-19] MEDS: INSULIN LISPRO 100 UNIT/ML 3 ML VIAL SUBCUT SCH ×4 (09:00→21:57)
[2019-07-19] MEDS: SUCRALFATE 1 GM TABLET PO SCH ×4 (09:01→22:49)
[2019-07-19] MEDS: ONDANSETRON HCL INJ/PF 4 MG/2 ML SDV IV PRN (09:01)
[2019-07-19] MEDS: PANTOPRAZOLE SODIUM 40 MG VIAL IV SCH ×2 (09:52→22:49)
--- NOTE | 2019-07-19 11:36 | PDOC PROGRESS REPORT ---
Subjective Progress Note for:: 07/19/19 Subjective:: 29-year-old male added yesterday for DKA. Patient has been out of his Lantus for about a month. Patient also admits to drinking beer frequently patient was admitted to the hospital with leuko-cytosis 22,400, glucose level of 827. Hemoglobin A1c 10.7 07/18/2019 he is feeling much better, vital signs are stable temperature 98.6 pulse is about 60 blood pressure 144/91, O2 sat 100% on room air WBCs today have come down to 15,000, down from 22,000 glucose levels are down in the mid 200s from a high of 827, electrolytes are normal Patient is currently on Protonix IV Carafate Lantus 30 units nightly and a sliding scale 07 19 19 patient continues to feel better, stronger and more of an appetite. Contact discharge planning today about finances for getting his medications potential discharge tomorrow. No further nausea or vomiting Reason For Visit: DKA (DIABETIC KETOACIDOSIS) Physical Exam Vital Signs: Temp Pulse Resp BP Pulse Ox 97.6 F 51 L 18 147/87 H 100 07/19/19 07:23 07/19/19 07:23 07/19/19 07:23 07/19/19 07:23 07/19/19 07:23 Intake & Output 07/18/19 07/19/19 07/20/19 06:59 06:59 06:59 Intake Total 3386 1495 Output Total 900 800 Balance 2486 695 Weight 76.3 kg 72.2 kg General appearance: PRESENT: no acute distress Respiratory exam: PRESENT: clear to auscultation ramon. ABSENT: rales, rhonchi, wheezes Cardiovascular exam: PRESENT: RRR. ABSENT: diastolic murmur, rubs, systolic murmur GI/Abdominal exam: PRESENT: normal bowel sounds, soft. ABSENT: distended, guarding, mass, organolmegaly, rebound, tenderness Neurological exam: PRESENT: alert, awake, oriented to person, oriented to place, oriented to time, oriented to situation, CN II-XII grossly intact. ABSENT: motor sensory deficit Psychiatric exam: PRESENT: appropriate affect, normal mood. ABSENT: homicidal ideation, suicidal ideation Results Laboratory Results: 07/19/19 03:54 07/19/19 08:01 07/18/19 07/18/1907/18/19 11:25 15:30 19:19 WBC RBC Hgb Hct MCV MCH MCHC RDW Plt Count Sodium 143.7 143.8 141.6 Potassium 4.5 4.0 4.5 Chloride 106 107 105 Carbon Dioxide 29 27 25 Anion Gap 9 10 12 BUN 20 19 20 Creatinine 0.88 0.85 0.79 Est GFR ( Amer) > 60 > 60 > 60 Glucose 258 H 128 H 162 H Calcium 9.5 9.5 9.4 Phosphorus Magnesium 07/18/19 07/19/19 07/19/19 23:30 03:54 03:54 WBC 7.3 RBC 4.46 Hgb 13.7 Hct 40.0 MCV 90 MCH 30.8 MCHC 34.4 RDW 12.3 Plt Count 161 Sodium 140.5 141.1 Potassium 3.6 3.8 Chloride 103 104 Carbon Dioxide 26 29 Anion Gap 12 8 BUN 21 H 21 H Creatinine 0.85 0.82 Est GFR ( Amer) > 60 > 60 Glucose 268 H 205 H Calcium 9.3 9.3 Phosphorus 3.6 Magnesium 2.0 07/19/19 08:01 WBC RBC Hgb Hct MCV MCH MCHC RDW Plt Count Sodium 142.6 Potassium 4.5 Chloride 103 Carbon Dioxide 29 Anion Gap 11 BUN 20 Creatinine 0.88 Est GFR ( Amer) > 60 Glucose 212 H Calcium 9.6 Phosphorus Magnesium Impressions: Chest X-Ray 07/16/19 13:37 IMPRESSION: NO ACUTE RADIOGRAPHIC FINDING IN THE CHEST. Assessment and Plan - Diagnosis (1) H/O ETOH abuse Is this a current diagnosis for this admission?: Yes Plan: States he drinks about a sixpack of beer every other night, although his mother was on the phone and it may be that he does drink more alcohol than what he admits to 07/18/2019 no sign of DTs 07/19/2019 patient has not voiced any concerns pertaining to alcohol (2) Patient noncompliance Is this a current diagnosis for this admission?: Yes Plan: Patient was not taking his Lantus and checking his blood sugars because he said it was too much trouble 07/18/2019 discussed the importance of patient taking his Lantus and checking his blood sugars once he is discharged 07/19/2019 and is asking about trying to make sure he can have his medications when he gets home, asking about discharge planning deceiving get financial assistance to get his medicines. Patient showing more responsibility (3) Patient's noncompliance with other medical treatment and regimen Is this a current diagnosis for this admission?: Yes Plan: Patient not taking his Lantus for about a month now 07/18/2019 rest the importance of diabetes medication and fingersticks 07/19/2019 patient states he is going to take his medicine as prescribed (4) DKA (diabetic ketoacidoses) Qualifiers: Diabetes mellitus type: type 1 Diabetes mellitus complication detail: with coma Qualified Code(s): E10.11 - Type 1 diabetes mellitus with ketoacidosis with coma Is this a current diagnosis for this admission?: Yes Plan: We are going to put him on insulin drip and given copious IV fluids. We will check a metabolic panel every 4 hours and will replace electrolytes as needed. We will check a hemoglobin A1c in the morning to see how well controlled his blood sugar is to see if he needs further adjustment of his regimen. N.p.o. for now. Patient's glucose levels have come down nicely into the low 100s. He is no longer on insulin drip and will be covered with a sliding scale and will continue with IV fluids D5 half-normal saline at 100/h 07/18/2019 his blood sugars are responding well Lantus. Chemistry panel shows anion gap of 9, blood sugars are in the low to mid 200s now. 07/19/2019 [place] levels continue to improve patient is averaging a serum glucose of about 200 now.. Fingerstick glucoses running in the 100s Patient is currently taking Lantus 30 units nightly (5) Erosive esophagitis Is this a current diagnosis for this admission?: Yes Plan: Since positive blood of his gastric contents this morning will add Protonix and Carafate to his regimen 07/18/2019 states he is feeling better he is not coughing up any dark substances has more of an appetite and asking for food. We will continue the Carafate as an outpatient when discharged 07/19/2019 he has no further vomiting will discharge patient home on Carafate x7 days - Time Time Spent with patient: 25-34 minutes - White count is down to 7300 electrolytes are normal
[2019-07-19 13:08] LABS: ANION GAP 8 (5-19); BLOOD UREA NITROGEN 20 mg/dL (7-20); CALCIUM 9.8 mg/dL (8.4-10.2); CARBON DIOXIDE 32 mmol/L (22-30); CHLORIDE 101 mmol/L (98-107); GLUCOSE 194 mg/dL (75-110); POTASSIUM 4.3 mmol/L (3.6-5.0)
[2019-07-19 17:03] LABS: ANION GAP 7 (5-19); BLOOD UREA NITROGEN 19 mg/dL (7-20); CALCIUM 9.1 mg/dL (8.4-10.2); CARBON DIOXIDE 31 mmol/L (22-30); CHLORIDE 102 mmol/L (98-107); GLUCOSE 173 mg/dL (75-110); POTASSIUM 3.7 mmol/L (3.6-5.0)
[2019-07-19 20:30] LABS: BLOOD UREA NITROGEN 18 mg/dL (7-20); CALCIUM 9.5 mg/dL (8.4-10.2); CARBON DIOXIDE 31 mmol/L (22-30); GLUCOSE 131 mg/dL (75-110); POTASSIUM 3.7 mmol/L (3.6-5.0)
[2019-07-19 20:32] LABS: ANION GAP 7 (5-19); CHLORIDE 103 mmol/L (98-107)
[2019-07-19] MEDS: INSULIN GLARGINE,HUM.REC.ANLOG 1,000 UNIT/10 ML VIAL SUBCUT SCH (22:50)
[2019-07-20 01:37] LABS: ANION GAP 7 (5-19); BLOOD UREA NITROGEN 18 mg/dL (7-20); CALCIUM 9.5 mg/dL (8.4-10.2); CARBON DIOXIDE 33 mmol/L (22-30); CHLORIDE 101 mmol/L (98-107); GLUCOSE 104 mg/dL (75-110); POTASSIUM 3.8 mmol/L (3.6-5.0)
[2019-07-20 05:11] LABS: ANION GAP 8 (5-19); BLOOD UREA NITROGEN 16 mg/dL (7-20); CALCIUM 9.5 mg/dL (8.4-10.2); CARBON DIOXIDE 32 mmol/L (22-30); CHLORIDE 102 mmol/L (98-107); POTASSIUM 3.5 mmol/L (3.6-5.0)
[2019-07-20 05:13] LABS: GLUCOSE 60 mg/dL (75-110)
[2019-07-20] MEDS: HEPARIN SOD (PORCINE) 5,000 UNIT/ML 1 ML VIAL SUBCUT SCH (05:20)
[2019-07-20] MEDS: INSULIN LISPRO 100 UNIT/ML 3 ML VIAL SUBCUT SCH (08:27)
[2019-07-20 09:23] VITALS: BP 142/90
--- NOTE | 2019-07-20 09:28 | PDOC DISCHARGE SUMMARY ---
General - Admit/Disc Date/PCP Admission Date/Primary Care Provider: 07/16/19 15:38 MAGALY JEAN MD Discharge Date: 07/20/19 - Discharge Diagnosis (1) H/O ETOH abuse Is this a current diagnosis for this admission?: Yes Summary: Patient states he drinks about a sixpack every other day however his mother was on the phone and indicated to nursing that he drinks more than that. Patient had what appeared to be erosive esophagitis probably secondary to alcohol while hospital. However patient had no indication of DTs. (2) Patient noncompliance Is this a current diagnosis for this admission?: Yes Summary: Told the admitting physician that he did not have time to do fingersticks and he had been off of his Lantus for at least 1 month. Patient states he is having difficulty affording his medicine discharge planning has been to see the patient.. Patient has family and reportedly patient is going to [place] within the next month. (3) Patient's noncompliance with other medical treatment and regimen Is this a current diagnosis for this admission?: Yes (4) DKA (diabetic ketoacidoses) Is this a current diagnosis for this admission?: Yes Summary: Patient was admitted his potassium was 5.8 carbon dioxide was 9 anion gap was 37 BUN of 43 creatinine 2.22 glucose was greater than 550 finger stick and actual serum glucose was 827. At time of discharge sodium is 142 potassium 3.5 chloride 102 carbon dioxide 32 anion gap of 8 BUN is 16 creatinine 0.85 glucose this morning is 60 and then it went up to 140 sugar stick is 68 Patient has been diabetic since age of 13 she was feeling bad for 2 to 3 days prior to coming into the hospital with some nausea and vomiting (5) Erosive esophagitis Is this a current diagnosis for this admission?: Yes Summary: Patient was coughing up and spitting up some dark substances on admission, Hemoccult at that time was negative for blood and checking his stools, however on the following day we checked his gastric's secretions and it was positive for blood. This was thought to be on the basis of alcohol abuse, he was treated with IV Protonix and Carafate and this resolved quickly with good resolution of his symptoms of indigestion and nausea as well - Additional Information Resuscitation Status: Full Code Discharge Diet: Diabetic Discharge Activity: Activity As Tolerated Prescriptions: Sucralfate [Carafate 1 gm Tablet] 1 gm PO ACHS #120 tablet Insulin Glargine,Hum.rec.anlog [Lantus Insulin 100 Unit/1 ml 10 ml] 35 unit SUBCUT QHS 30 Days #1 unit Home Medications: Insulin Aspart [Novolog] 8 unit SQ MEALS 07/16/19 Insulin Glargine,Hum.rec.anlog [Lantus Insulin 100 Unit/1 ml 10 ml] 35 unit SUBCUT QHS 30 Days #1 unit 07/20/19 Sucralfate [Carafate 1 gm Tablet] 1 gm PO ACHS #120 tablet 07/20/19 History of Present Illness History of Present Illness: JORDYN DAVIS is a 29 year old male who was admitted for 2 to 3 days of feeling weak tired nausea and vomiting. Patient admits to not taking his Lantus for almost a month patient has been in DKA before with similar symptoms Hospital Course Hospital Course: Patient was admitted and put on an insulin drip and IV fluids and quickly his glucose levels as well as potassium levels corrected patient actually had copious amounts of IV fluids and a Estelita panel 7 was checked every 4 hours. Hemoglobin A1c on admission was 10.7. At the time of discharge patient's fingersticks are running in the mid 60s to the mid 100s. Serum glucose levels are running also in the mid 100s Will be sent out on Lantus 35 units at night this is down slightly from his hospital doses patient will also be sent out on Carafate a 30-day supply. At the time of discharge patient is eating a normal diabetic diet with no nausea vomiting Physical Exam Vital Signs: Temp Pulse Resp BP Pulse Ox 98.5 F 56 L 18 140/89 H 100 07/20/19 07:26 07/20/19 07:26 07/20/19 07:26 07/20/19 07:26 07/20/19 07:26 Intake & Output 07/19/19 07/20/19 07/21/19 06:59 06:59 06:59 Intake Total 1495 1600 Output Total 800 0 Balance 695 1600 Weight 72.2 kg 78.9 kg General appearance: PRESENT: no acute distress Respiratory exam: PRESENT: clear to auscultation ramon. ABSENT: rales, rhonchi, wheezes Cardiovascular exam: PRESENT: RRR. ABSENT: diastolic murmur, rubs, systolic murmur GI/Abdominal exam: PRESENT: normal bowel sounds, soft. ABSENT: distended, guarding, mass, organolmegaly, rebound, tenderness Neurological exam: PRESENT: alert, awake, oriented to person, oriented to place, oriented to time, oriented to situation, CN II-XII grossly intact. ABSENT: motor sensory deficit Psychiatric exam: PRESENT: appropriate affect, normal mood. ABSENT: homicidal ideation, suicidal ideation Results Laboratory Results: 07/19/19 03:54 07/20/19 04:22 07/19/19 07/19/19 07/19/19 12:30 16:21 19:59 Sodium 141.2 139.9 140.5 Potassium 4.3 3.7 3.7 Chloride 101 102 103 Carbon Dioxide 32 H 31 H 31 H Anion Gap 8 7 7 BUN 20 19 18 Creatinine 0.86 0.82 0.71 Est GFR ( Amer) > 60 > 60 > 60 Glucose 194 H 173 H 131 H Calcium 9.8 9.1 9.5 07/20/19 07/20/19 00:45 04:22 Sodium 140.8 142.2 Potassium 3.8 3.5 L Chloride 101 102 Carbon Dioxide 33 H 32 H Anion Gap 7 8 BUN 18 16 Creatinine 0.87 0.85 Est GFR ( Amer) > 60 > 60 Glucose 104 60 L Calcium 9.5 9.5 Impressions: Chest X-Ray 07/16/19 13:37 IMPRESSION: NO ACUTE RADIOGRAPHIC FINDING IN THE CHEST. Qualifiers - * PATIENT BEING DISCHARGED WITH ANY OF THE FOLLOWING DIAGNOSIS: No Acute Heart Failure - Is this a Heart Failure Patient?: No Plan Time Spent: Greater than 30 Minutes - Follow up [facility] to take Lantus 35 units at night cover otherwise with a sliding scale of regular Humalog. Carafate for the next 30 days as needed
[2019-07-20] MEDS: SUCRALFATE 1 GM TABLET PO SCH (10:01)
[2019-07-20] MEDS: PANTOPRAZOLE SODIUM 40 MG VIAL IV SCH (10:01)
== END 2019-07-20 10:29 | disposition home or self-care (01) | DRG 638 ==
LOC: ER 13:18 → UNDOADMIN 15:38 → EH 15:38 → 3S 17:45
PROVIDERS: ADMIT Family Medicine; ATTEND Family Medicine
DX: E10.10 Type 1 diabetes mellitus with ketoacidosis without coma (principal); K22.10 Ulcer of esophagus without bleeding; F10.10 Alcohol abuse, uncomplicated; T38.3X6A Underdosing of insulin and oral hypoglycemic [antidiabetic] drugs, initial encounter; Z79.4 Long term (current) use of insulin; Z87.891 Personal history of nicotine dependence; Z82.49 Family history of ischemic heart disease and other diseases of the circulatory system; Z91.128 Patient's intentional underdosing of medication regimen for other reason; Z91.030 Bee allergy status
CPT/HCPCS: 36415; 71045; 80048; 80053; 81001; 82271; 82803; 82962; 83036; 83690; 83735; 84100; 85025; 85027; 86850; 86900; 86901; 93005; 93010; 96360; 96361; 99285; J1815; J2405; J3480; J7030; J7050; S0164